=== PATIENT | female | born 1945 | race African-American/Black ===

== ENCOUNTER 2017-01-27 16:43 | Inpatient (IN) | payer MEDICARE ==
[2017-01-27] VITALS (7 sets, daily range): BP systolic 120–145; BP diastolic 70–94
[~2017-01-27] VITALS: Ht 162.6 cm; Wt 49.0 kg
--- NOTE | 2017-01-27 17:32 | Emergency Room Report ---
History of Present Illness General Chief Complaint: Syncope Source: Patient Present Illness HPI Patient 71-year-old female who presented after a syncopal episode. Patient had reportedly been at a festival and subsequently became less responsive. She denied any trauma. Patient denies any current locations of pain. The patient was noted to be somewhat confused. Allergies: Coded Allergies: No Known Allergies (Unverified , 01/27/17) Patient History Past Medical History: see triage record Reviewed Nursing Documentation: PMH: Agreed, PSxH: Agreed Nursing Documentation-PMH Past Medical History: No Stated History Review of Systems All Other Systems: negative except mentioned in HPI Physical Exam Vital Signs Date Time Temp Pulse Resp B/P (MAP) Pulse Ox O2 Delivery O2 Flow Rate FiO2 01/27/17 16:35 99.0 100 20 130/70 99 Room Air Sp02 EP Interpretation: reviewed, normal General Appearance: normal inspection, well appearing, no apparent distress, alert, Chronically Ill Head: atraumatic ENT: normal ENT inspection, hearing grossly normal, normal voice Neck: normal inspection, full range of motion, supple, no bony tend Respiratory: normal inspection, lungs clear, normal breath sounds, no respiratory distress, no retraction, no wheezing Cardiovascular #1: regular rate, rhythm, no edema Gastrointestinal: normal inspection, normal bowel sounds, non tender, soft, no guarding, no hernia Genitourinary: no CVA tenderness Musculoskeletal: normal inspection, back normal, normal range of motion Neurologic: normal inspection, alert, oriented x3, responsive, machine turner III-XII nml as tested, speech normal Psychiatric: normal inspection, judgement/insight normal, mood/affect normal Skin: normal inspection, normal color, no rash Medical Decision Making Diagnostic Impression: Primary Impression: Syncope Additional Impression: Dehydration ER Course Patient presented for syncope. Differential diagnosis included but not limited to syncope versus seizure. Potential causes for syncope included arrhythmia, dehydration, acute coronary syndrome, severe anemia, pulmonary embolus. Because of complexity of patient's case laboratory testing and imaging studies were ordered. The patient was given IV fluids as well as was placed on environmental monitoring specialist. Rhythm strip interpreted by me showed normal sinus rhythm with a rate of [address] or T wave changes. EKG interpreted by me showed normal sinus rhythm with a rate of [address] or T wave changes.The patient started on IV fluids with some improvement in her blood pressure. The patient was unable to provide a urine specimen at this time. Dr. Page was contacted for inpatient management due to need for inpatient monitoring and treatment. Labs Test 01/27/17 17:50 White Blood Count 11.2 K/UL (4.8-10.8) Red Blood Count 4.28 M/UL (4.20-5.40) Hemoglobin 13.4 G/DL (12.0-16.0) Hematocrit 42.4 % (37.0-47.0) Mean Corpuscular Volume 99 FL (80-99) Mean Corpuscular Hemoglobin 31.3 PG (27.0-31.0) Mean Corpuscular Hemoglobin Concent 31.5 G/DL (32.0-36.0) Red Cell Distribution Width 12.9 % (11.6-14.8) Platelet Count 267 K/UL (150-450) Mean Platelet Volume 7.0 FL (6.5-10.1) Neutrophils (%) (Auto) 83.4 % (45.0-75.0) Lymphocytes (%) (Auto) 10.2 % (20.0-45.0) Monocytes (%) (Auto) 5.2 % (1.0-10.0) Eosinophils (%) (Auto) 0.1 % (0.0-3.0) Basophils (%) (Auto) 1.1 % (0.0-2.0) Prothrombin Time 10.1 SEC (9.30-11.50) Prothromb Time International Ratio 1.0 (0.9-1.1) Activated Partial Thromboplast Time 21 SEC (23-33) Sodium Level 142 MMOL/L (136-145) Potassium Level 3.9 MMOL/L (3.5-5.1) Chloride Level 106 MMOL/L (98-107) Carbon Dioxide Level 28 MMOL/L (21-32) Anion Gap 9 mmol/L (5-15) Blood Urea Nitrogen 16 mg/dL (7-18) Creatinine 0.9 MG/DL (0.55-1.30) Estimat Glomerular Filtration Rate > 60 mL/min (>60) Glucose Level 108 MG/DL (74-106) Calcium Level 9.7 MG/DL (8.5-10.1) Total Bilirubin 0.2 MG/DL (0.2-1.0) Aspartate Amino Transf (AST/SGOT) 28 U/L (15-37) Alanine Aminotransferase (ALT/SGPT) 18 U/L (12-78) Alkaline Phosphatase 91 U/L (46-116) Total Protein 7.5 G/DL (6.4-8.2) Albumin 3.9 G/DL (3.4-5.0) Globulin 3.6 g/dL Albumin/Globulin Ratio 1.1 (1.0-2.7) Serum Alcohol < 3 mg/dL EKG Diagnostic Results Rate: normal Rhythm: NSR ST Segments: no acute changes - 88 Last Vital Signs Date Time Temp Pulse Resp B/P (MAP) Pulse Ox O2 Delivery O2 Flow Rate FiO2 01/27/17 16:35 99.0 100 20 130/70 99 Room Air Status: improved Disposition: ADMITTED INPATIENT Condition: Alireza Weems Jan 27, 2017 17:32
[2017-01-27 18:09] LABS: BASOPHILS % (AUTO) 1.1 % (0.0-2.0); EOSINOPHILS % (AUTO) 0.1 % (0.0-3.0); LYMPHOCYTES % (AUTO) 10.2 % (20.0-45.0); MEAN CORPUSCULAR HEMOGLOBIN 31.3 PG (27.0-31.0); MEAN CORPUSCULAR HGB CONC 31.5 G/DL (32.0-36.0); MEAN CORPUSCULAR VOLUME 99 FL (80-99); MONOCYTES % (AUTO) 5.2 % (1.0-10.0); NEUTROPHILS % (AUTO) 83.4 % (45.0-75.0); PLATELET COUNT 267 K/UL (150-450); RED BLOOD COUNT 4.28 M/UL (4.20-5.40); RED CELL DISTRIBUTION WIDTH 12.9 % (11.6-14.8); WHITE BLOOD COUNT 11.2 K/UL (4.8-10.8)
[2017-01-27 18:15] LABS: PROTHROMBIN TIME 10.1 SEC (9.30-11.50)
[2017-01-27 18:18] LABS: ANION GAP 9 mmol/L (5-15); CARBON DIOXIDE 28 MMOL/L (21-32); CHLORIDE 106 MMOL/L (98-107); POTASSIUM 3.9 MMOL/L (3.5-5.1); SODIUM 142 MMOL/L (136-145)
[2017-01-27 18:33] LABS: ALANINE AMINOTRANSFERASE 18 U/L (12-78); ALBUMIN/GLOBULIN RATIO 1.1 (1.0-2.7); ASPARTATE AMINO TRANSFERASE 28 U/L (15-37); CALCIUM 9.7 MG/DL (8.5-10.1); CREATININE 0.9 MG/DL (0.55-1.30); GLOMERULAR FILTRATION RATE > 60 mL/min (>60); TOTAL PROTEIN 7.5 G/DL (6.4-8.2)
[2017-01-27 18:36] LABS: ALCOHOL < 3 mg/dL
[2017-01-27] MEDS ORDERED: NKM (22:04)
[2017-01-28] VITALS: BP 134/89
[2017-01-28 04:00] VITALS: BP 136/84
[2017-01-28 06:15] LABS: BASOPHILS % (AUTO) 1.3 % (0.0-2.0); LYMPHOCYTES % (AUTO) 31.2 % (20.0-45.0); MEAN CORPUSCULAR HEMOGLOBIN 32.4 PG (27.0-31.0); MEAN CORPUSCULAR HGB CONC 32.9 G/DL (32.0-36.0); MEAN CORPUSCULAR VOLUME 98 FL (80-99); MEAN PLATELET VOLUME 7.6 FL (6.5-10.1); MONOCYTES % (AUTO) 7.5 % (1.0-10.0); NEUTROPHILS % (AUTO) 59.1 % (45.0-75.0); PLATELET COUNT 308 K/UL (150-450); RED BLOOD COUNT 4.16 M/UL (4.20-5.40); RED CELL DISTRIBUTION WIDTH 12.9 % (11.6-14.8); WHITE BLOOD COUNT 8.1 K/UL (4.8-10.8)
[2017-01-28 06:26] LABS: ANION GAP 4 mmol/L (5-15); CARBON DIOXIDE 31 MMOL/L (21-32); CHLORIDE 107 MMOL/L (98-107); SODIUM 142 MMOL/L (136-145)
[2017-01-28 07:04] LABS: HEMOGLOBIN A1C 6.8 % (4.3-6.0)
[2017-01-28 07:25] LABS: KETONES,URINE NEGATIVE (NEGATIVE); LEUKOCYTE ESTERASE ,URINE 1+ (NEGATIVE); NITRITE,URINE NEGATIVE (NEGATIVE); PH,URINE 6 (4.5-8.0); PROTEIN,URINE NEGATIVE (NEGATIVE); UROBILINOGEN,URINE NORMAL MG/DL (0.0-1.0)
[2017-01-28 08:00] VITALS: BP 158/95
[2017-01-28 08:30] LABS: ALANINE AMINOTRANSFERASE 21 U/L (12-78); ALBUMIN/GLOBULIN RATIO 1.1 (1.0-2.7); ASPARTATE AMINO TRANSFERASE 28 U/L (15-37); CALCIUM 9.7 MG/DL (8.5-10.1); CHOLESTEROL 234 MG/DL (< 200); CHOLESTEROL/HDL RATIO 2.5 (3.3-4.4); CREATININE 0.9 MG/DL (0.55-1.30); GLOMERULAR FILTRATION RATE > 60 mL/min (>60); TOTAL PROTEIN 7.6 G/DL (6.4-8.2)
--- NOTE | 2017-01-28 08:46 | General Progress Note ---
Assessment/Plan Status: stable Assessment/Plan 1- Acute Encephalopathy 2- THC 3- Abn BS 4- Hyperlipidemia 5- GI-DVT Plan: cardiology notified echo and carotid Dupplex ordered Subjective ROS Limited/Unobtainable: No Constitutional: Reports: no symptoms Cardiovascular: Reports: no symptoms Respiratory: Reports: no symptoms Allergies: Coded Allergies: No Known Allergies (Unverified , 01/27/17) Objective Last 24 Hour Vital Signs Date Time Temp Pulse Resp B/P (MAP) Pulse Ox O2 Delivery O2 Flow Rate FiO2 01/28/17 08:00 96.6 85 18 158/95 96 Room Air 01/28/17 04:00 97.6 68 18 136/84 99 Room Air 01/28/17 04:00 73 01/28/17 00:00 97.0 70 21 134/89 98 Room Air 01/28/17 00:00 87 01/27/17 22:05 99.0 77 21 126/70 100 Room Air 01/27/17 22:00 99.0 77 21 126/70 100 Room Air 01/27/17 19:25 95 16 145/84 99 Room Air 01/27/17 18:00 89 14 120/94 99 Room Air 01/27/17 17:00 145/84 01/27/17 16:55 139/79 01/27/17 16:50 142/79 01/27/17 16:45 99.0 20 130/70 99 Room Air 01/27/17 16:35 99.0 100 20 130/70 99 Room Air Laboratory Tests 01/27/17 17:50: White Blood Count 11.2H, Red Blood Count 4.28, Hemoglobin 13.4, Hematocrit 42.4 , Mean Corpuscular Volume 99, Mean Corpuscular Hemoglobin 31.3H, Mean Corpuscular Hemoglobin Concent 31.5L, Red Cell Distribution Width 12.9, Platelet Count 267, Mean Platelet Volume 7.0, Neutrophils (%) (Auto) 83.4H, Lymphocytes (%) (Auto) 10.2L, Monocytes (%) (Auto) 5.2, Eosinophils (%) (Auto) 0.1, Basophils (%) (Auto) 1.1, Prothrombin Time 10.1, Prothromb Time International Ratio 1.0, Activated Partial Thromboplast Time 21L, Sodium Level 142, Potassium Level 3.9, Chloride Level 106, Carbon Dioxide Level 28, Anion Gap 9, Blood Urea Nitrogen 16, Creatinine 0.9, Estimat Glomerular Filtration Rate > 60, Glucose Level 108H, Calcium Level 9.7, Total Bilirubin 0.2, Aspartate Amino Transf (AST/SGOT) 28, Alanine Aminotransferase (ALT/SGPT) 18, Alkaline Phosphatase 91, Troponin I 0.003, Total Protein 7.5, Albumin 3.9, Globulin 3.6, Albumin/Globulin Ratio 1.1, Serum Alcohol < 3 01/28/17 06:00: White Blood Count 8.1, Red Blood Count 4.16L, Hemoglobin 13.4, Hematocrit 40.9, Mean Corpuscular Volume 98, Mean Corpuscular Hemoglobin 32.4H, Mean Corpuscular Hemoglobin Concent 32.9, Red Cell Distribution Width 12.9, Platelet Count 308, Mean Platelet Volume 7.6, Neutrophils (%) (Auto) 59.1, Lymphocytes (%) (Auto) 31.2, Monocytes (%) (Auto) 7.5, Eosinophils (%) (Auto) 1.0, Basophils (%) (Auto ) 1.3, Sodium Level 142, Potassium Level 4.0, Chloride Level 107, Carbon Dioxide Level 31, Anion Gap 4L, Blood Urea Nitrogen 21H, Creatinine 0.9, Estimat Glomerular Filtration Rate > 60, Glucose Level 97, Calcium Level 9.7, Total Bilirubin 0.3, Aspartate Amino Transf (AST/SGOT) 28, Alanine Aminotransferase (ALT/SGPT) 21, Alkaline Phosphatase 99, Troponin I 0.000, Total Protein 7.6, Albumin 3.9, Globulin 3.7, Albumin/Globulin Ratio 1.1, Urine Color [Pending], Urine Appearance [Pending], Urine pH [Pending], Urine Specific [place] [Pending], Urine Protein [Pending], Urine Glucose (UA) [Pending], Urine Ketones [Pending], Urine Occult Blood [Pending], Urine Nitrite [Pending], Urine Bilirubin [Pending], Urine Urobilinogen [Pending], Urine Leukocyte Esterase [ Pending], Urine RBC [Pending], Urine WBC [Pending], Urine Squamous Epithelial Cells [Pending], Urine Bacteria [Pending], Hemoglobin A1c 6.8H, Triglycerides Level 59, Cholesterol Level 234H, LDL Cholesterol 137H, HDL Cholesterol 93H, Cholesterol/HDL Ratio 2.5L, Urine Opiates Screen Negative, Urine Barbiturates Screen Negative, Phencyclidine (PCP) Screen Negative, Urine Amphetamines Screen Negative, Urine Benzodiazepines Screen Negative, Urine Cocaine Screen Negative, Urine Marijuana (THC) Screen PositiveH Height (Feet): 5 Height (Inches): 4.00 Weight (Pounds): 108 General Appearance: WD/WN EENT: PERRL/EOMI Neck: supple Cardiovascular: normal rate Respiratory/Chest: lungs clear Abdomen: soft Extremities: non-tender Neurologic: lobby porter II-XII grossly normal Amado Page MD Jan 28, 2017 08:46
[2017-01-28] MEDS: Aspirin EC 81mg tab ORAL SCH (08:52)
[2017-01-28] MEDS: Enoxaparin 40mg Inj SUBQ SCH (08:54)
[2017-01-28 08:56] LABS: APPEARANCE,URINE CLEAR
[2017-01-28 08:57] LABS: BACTERIA,URINE OCCASIONAL /HPF; RBC,URINE 0-2 /HPF (0 - 2); SQUAMOUS EPITHELIAL CELL,UR OCCASIONAL /LPF (NONE/OCC)
--- NOTE | 2017-01-28 11:55 | Diagnostic Imaging Report ---
Indication: Dyspnea Comparison: None A single view chest radiograph was obtained. Findings: No definite infiltrate or pulmonary vascular congestion identified. The heart is enlarged. The aorta is mildly enlarged consistent with atherosclerotic vascular disease. The bones are osteopenic. Impression: No acute disease
[2017-01-28 12:00] VITALS: BP 161/80
--- NOTE | 2017-01-28 13:55 | Cardiology Progress Note ---
Assessment/Plan Assessment/Plan The patient is seen and examined, full consult note will be dictated shortly. Objective Last 24 Hour Vital Signs Date Time Temp Pulse Resp B/P (MAP) Pulse Ox O2 Delivery O2 Flow Rate FiO2 01/28/17 12:00 96.2 70 20 161/80 97 Room Air 01/28/17 08:00 96.6 85 18 158/95 96 Room Air 01/28/17 04:00 97.6 68 18 136/84 99 Room Air 01/28/17 04:00 73 01/28/17 00:00 97.0 70 21 134/89 98 Room Air 01/28/17 00:00 87 01/27/17 22:05 99.0 77 21 126/70 100 Room Air 01/27/17 22:00 99.0 77 21 126/70 100 Room Air 01/27/17 19:25 95 16 145/84 99 Room Air 01/27/17 18:00 89 14 120/94 99 Room Air 01/27/17 17:00 145/84 01/27/17 16:55 139/79 01/27/17 16:50 142/79 01/27/17 16:45 99.0 20 130/70 99 Room Air 01/27/17 16:35 99.0 100 20 130/70 99 Room Air Intake and Output 01/28/17 01/29/17 19:00 07:00 Intake Total 300 ml Balance 300 ml Intake Oral 300 ml # Voids 1 Laboratory Tests Test 01/27/17 17:50 01/28/17 06:00 White Blood Count 11.2 K/UL (4.8-10.8) H 8.1 K/UL (4.8-10.8) Red Blood Count 4.28 M/UL (4.20-5.40) 4.16 M/UL (4.20-5.40) L Hemoglobin 13.4 G/DL (12.0-16.0) 13.4 G/DL (12.0-16.0) Hematocrit 42.4 % (37.0-47.0) 40.9 % (37.0-47.0) Mean Corpuscular Volume 99 FL (80-99) 98 FL (80-99) Mean Corpuscular Hemoglobin 31.3 PG (27.0-31.0) H 32.4 PG (27.0-31.0) H Mean Corpuscular Hemoglobin Concent 31.5 G/DL (32.0-36.0) L 32.9 G/DL (32.0-36.0) Red Cell Distribution Width 12.9 % (11.6-14.8) 12.9 % (11.6-14.8) Platelet Count 267 K/UL (150-450) 308 K/UL (150-450) Mean Platelet Volume 7.0 FL (6.5-10.1) 7.6 FL (6.5-10.1) Neutrophils (%) (Auto) 83.4 % (45.0-75.0) H 59.1 % (45.0-75.0) Lymphocytes (%) (Auto) 10.2 % (20.0-45.0) L 31.2 % (20.0-45.0) Monocytes (%) (Auto) 5.2 % (1.0-10.0) 7.5 % (1.0-10.0) Eosinophils (%) (Auto) 0.1 % (0.0-3.0) 1.0 % (0.0-3.0) Basophils (%) (Auto) 1.1 % (0.0-2.0) 1.3 % (0.0-2.0) Prothrombin Time 10.1 SEC (9.30-11.50) Prothromb Time International Ratio 1.0 (0.9-1.1) Activated Partial Thromboplast Time 21 SEC (23-33) L Sodium Level 142 MMOL/L (136-145) 142 MMOL/L (136-145) Potassium Level 3.9 MMOL/L (3.5-5.1) 4.0 MMOL/L (3.5-5.1) Chloride Level 106 MMOL/L (98-107) 107 MMOL/L (98-107) Carbon Dioxide Level 28 MMOL/L (21-32) 31 MMOL/L (21-32) Anion Gap 9 mmol/L (5-15) 4 mmol/L (5-15) L Blood Urea Nitrogen 16 mg/dL (7-18) 21 mg/dL (7-18) H Creatinine 0.9 MG/DL (0.55-1.30) 0.9 MG/DL (0.55-1.30) Estimat Glomerular Filtration Rate > 60 mL/min (>60) > 60 mL/min (>60) Glucose Level 108 MG/DL (74-106) H 97 MG/DL (74-106) Calcium Level 9.7 MG/DL (8.5-10.1) 9.7 MG/DL (8.5-10.1) Total Bilirubin 0.2 MG/DL (0.2-1.0) 0.3 MG/DL (0.2-1.0) Aspartate Amino Transf (AST/SGOT) 28 U/L (15-37) 28 U/L (15-37) Alanine Aminotransferase (ALT/SGPT) 18 U/L (12-78) 21 U/L (12-78) Alkaline Phosphatase 91 U/L (46-116) 99 U/L (46-116) Troponin I 0.003 ng/mL (0.000-0.056) 0.000 ng/mL (0.000-0.056) Total Protein 7.5 G/DL (6.4-8.2) 7.6 G/DL (6.4-8.2) Albumin 3.9 G/DL (3.4-5.0) 3.9 G/DL (3.4-5.0) Globulin 3.6 g/dL 3.7 g/dL Albumin/Globulin Ratio 1.1 (1.0-2.7) 1.1 (1.0-2.7) Serum Alcohol < 3 mg/dL Urine Color Yellow Urine Appearance Clear Urine pH 6 (4.5-8.0) Urine Specific [place] 1.020 (1.005-1.035) Urine Protein Negative (NEGATIVE) Urine Glucose (UA) Negative (NEGATIVE) Urine Ketones Negative (NEGATIVE) Urine Occult Blood Negative (NEGATIVE) Urine Nitrite Negative (NEGATIVE) Urine Bilirubin Negative (NEGATIVE) Urine Urobilinogen Normal MG/DL (0.0-1.0) Urine Leukocyte Esterase 1+ (NEGATIVE) H Urine RBC 0-2 /HPF (0 - 2) Urine WBC 5-10 /HPF (0 - 2) H Urine Squamous Epithelial Cells Occasional /LPF Urine Bacteria Occasional /HPF (NONE) Hemoglobin A1c 6.8 % (4.3-6.0) H Triglycerides Level 59 MG/DL (0-200) Cholesterol Level 234 MG/DL (< 200) H LDL Cholesterol 137 mg/dL (<100) H HDL Cholesterol 93 MG/DL (40-60) H Cholesterol/HDL Ratio 2.5 (3.3-4.4) L Urine Opiates Screen Negative (NEGATIVE) Urine Barbiturates Screen Negative (NEGATIVE) Phencyclidine (PCP) Screen Negative (NEGATIVE) Urine Amphetamines Screen Negative (NEGATIVE) Urine Benzodiazepines Screen Negative (NEGATIVE) Urine Cocaine Screen Negative (NEGATIVE) Urine Marijuana (THC) Screen Positive (NEGATIVE) H LEYDI ALEX Jan 28, 2017 13:55
--- NOTE | 2017-01-28 14:45 | Neurology Progress Note ---
Interim History Interim History ROS Limited/Unobtainable: No Objective Physical Exam Last Vital Signs Date Time Temp Pulse Resp B/P (MAP) Pulse Ox O2 Delivery O2 Flow Rate FiO2 01/28/17 12:00 96.2 70 20 161/80 97 Room Air Laboratory Tests Test 01/27/17 17:50 01/28/17 06:00 White Blood Count 11.2 K/UL (4.8-10.8) H 8.1 K/UL (4.8-10.8) Red Blood Count 4.28 M/UL (4.20-5.40) 4.16 M/UL (4.20-5.40) L Hemoglobin 13.4 G/DL (12.0-16.0) 13.4 G/DL (12.0-16.0) Hematocrit 42.4 % (37.0-47.0) 40.9 % (37.0-47.0) Mean Corpuscular Volume 99 FL (80-99) 98 FL (80-99) Mean Corpuscular Hemoglobin 31.3 PG (27.0-31.0) H 32.4 PG (27.0-31.0) H Mean Corpuscular Hemoglobin Concent 31.5 G/DL (32.0-36.0) L 32.9 G/DL (32.0-36.0) Red Cell Distribution Width 12.9 % (11.6-14.8) 12.9 % (11.6-14.8) Platelet Count 267 K/UL (150-450) 308 K/UL (150-450) Mean Platelet Volume 7.0 FL (6.5-10.1) 7.6 FL (6.5-10.1) Neutrophils (%) (Auto) 83.4 % (45.0-75.0) H 59.1 % (45.0-75.0) Lymphocytes (%) (Auto) 10.2 % (20.0-45.0) L 31.2 % (20.0-45.0) Monocytes (%) (Auto) 5.2 % (1.0-10.0) 7.5 % (1.0-10.0) Eosinophils (%) (Auto) 0.1 % (0.0-3.0) 1.0 % (0.0-3.0) Basophils (%) (Auto) 1.1 % (0.0-2.0) 1.3 % (0.0-2.0) Prothrombin Time 10.1 SEC (9.30-11.50) Prothromb Time International Ratio 1.0 (0.9-1.1) Activated Partial Thromboplast Time 21 SEC (23-33) L Sodium Level 142 MMOL/L (136-145) 142 MMOL/L (136-145) Potassium Level 3.9 MMOL/L (3.5-5.1) 4.0 MMOL/L (3.5-5.1) Chloride Level 106 MMOL/L (98-107) 107 MMOL/L (98-107) Carbon Dioxide Level 28 MMOL/L (21-32) 31 MMOL/L (21-32) Anion Gap 9 mmol/L (5-15) 4 mmol/L (5-15) L Blood Urea Nitrogen 16 mg/dL (7-18) 21 mg/dL (7-18) H Creatinine 0.9 MG/DL (0.55-1.30) 0.9 MG/DL (0.55-1.30) Estimat Glomerular Filtration Rate > 60 mL/min (>60) > 60 mL/min (>60) Glucose Level 108 MG/DL (74-106) H 97 MG/DL (74-106) Calcium Level 9.7 MG/DL (8.5-10.1) 9.7 MG/DL (8.5-10.1) Total Bilirubin 0.2 MG/DL (0.2-1.0) 0.3 MG/DL (0.2-1.0) Aspartate Amino Transf (AST/SGOT) 28 U/L (15-37) 28 U/L (15-37) Alanine Aminotransferase (ALT/SGPT) 18 U/L (12-78) 21 U/L (12-78) Alkaline Phosphatase 91 U/L (46-116) 99 U/L (46-116) Troponin I 0.003 ng/mL (0.000-0.056) 0.000 ng/mL (0.000-0.056) Total Protein 7.5 G/DL (6.4-8.2) 7.6 G/DL (6.4-8.2) Albumin 3.9 G/DL (3.4-5.0) 3.9 G/DL (3.4-5.0) Globulin 3.6 g/dL 3.7 g/dL Albumin/Globulin Ratio 1.1 (1.0-2.7) 1.1 (1.0-2.7) Serum Alcohol < 3 mg/dL Urine Color Yellow Urine Appearance Clear Urine pH 6 (4.5-8.0) Urine Specific [place] 1.020 (1.005-1.035) Urine Protein Negative (NEGATIVE) Urine Glucose (UA) Negative (NEGATIVE) Urine Ketones Negative (NEGATIVE) Urine Occult Blood Negative (NEGATIVE) Urine Nitrite Negative (NEGATIVE) Urine Bilirubin Negative (NEGATIVE) Urine Urobilinogen Normal MG/DL (0.0-1.0) Urine Leukocyte Esterase 1+ (NEGATIVE) H Urine RBC 0-2 /HPF (0 - 2) Urine WBC 5-10 /HPF (0 - 2) H Urine Squamous Epithelial Cells Occasional /LPF Urine Bacteria Occasional /HPF (NONE) Hemoglobin A1c 6.8 % (4.3-6.0) H Triglycerides Level 59 MG/DL (0-200) Cholesterol Level 234 MG/DL (< 200) H LDL Cholesterol 137 mg/dL (<100) H HDL Cholesterol 93 MG/DL (40-60) H Cholesterol/HDL Ratio 2.5 (3.3-4.4) L Urine Opiates Screen Negative (NEGATIVE) Urine Barbiturates Screen Negative (NEGATIVE) Phencyclidine (PCP) Screen Negative (NEGATIVE) Urine Amphetamines Screen Negative (NEGATIVE) Urine Benzodiazepines Screen Negative (NEGATIVE) Urine Cocaine Screen Negative (NEGATIVE) Urine Marijuana (THC) Screen Positive (NEGATIVE) H Impression/Recommendations Problems: (1) Syncope Status: stable Recommendations #[id number] MARY KATE MCCALLUM Jan 28, 2017 14:45
[2017-01-28 16:00] VITALS: BP 157/82
--- NOTE | 2017-01-28 17:04 | Cardiology Report ---
APPROVED REPORT EXAM: Two-dimensional and M-mode echocardiogram with Doppler and color Doppler. INDICATION Syncope M-Mode DIMENSIONS IVSd0.8 (0.7-1.1cm)Left Atrium (MM)3.1 (1.6-4.0cm) LVDd4.3 (3.5-5.6cm)Aortic Root2.7 (2.0-3.7cm) PWd0.7 (0.7-1.1cm)Aortic Cusp Exc.1.8 (1.5-2.0cm) LVDs1.5 (2.5-4.0cm) PWs1.5 cm Normal left ventricular chamber size, systolic function and wall motion. Left ventricular ejection fraction estimated to be 55 %. No evidence of left ventricular hypertrophy. Anterior Echo-free space, may be due to pericardial fat or effusion. All other cardiac chamber sizes are within normal limits. Normal appearing aortic valce structure. Mildly thickened mitral valve leaflets with normal excursion. Mild mitral annulus and aortic root calcification. Pulmonic valve not well visualized. Normal tricuspid valve structure. IVC dilated at 1.7 cm with physiologic collapse, estimated RAP is 10mmHg. A color flow and spectral Doppler study was performed and revealed: No aortic regurgitation. Trace mitral regurgitation. reduced left ventricular relaxation. Mild tricuspid regurgitation. Tricuspid systolic velocities suggests peak right ventricular systolic pressure of 33 mmHg. No pulmonic regurgitation present.
--- NOTE | 2017-01-28 17:17 | Cardiology Report ---
APPROVED REPORT EKG Measurement Heart [id number] Normal sinus rhythm Possible Left atrial enlargement Borderline ECG
[2017-01-28 20:00] VITALS: BP 155/83
[2017-01-29] VITALS (7 sets, daily range): BP systolic 127–173; BP diastolic 91–104
--- NOTE | 2017-01-29 05:45 | Consultation ---
DATE OF CONSULTATION: 01/28/2017 CARDIOLOGY CONSULTATION CONSULTING PHYSICIAN: Reji Baker M.D. REFERRING PHYSICIAN: Amado Page M.D. REASON FOR CONSULTATION: Management of syncope. HISTORY OF PRESENT ILLNESS: The patient is a very pleasant 71-year-old female, who presented to the hospital after an episode of presyncope. The patient states that she was in a [place] and she had extreme lightheadedness and dizziness and almost passed out. She denies complete loss of consciousness. At the time of her arrival to the emergency department, she was noted to be somewhat confused. Her blood pressure was 130/70 and pulse of 100. She was evaluated in the emergency department and was diagnosed with hypovolemia and admitted to telemetry. PAST MEDICAL HISTORY: None. PAST SURGICAL HISTORY: None. ALLERGIES: No known drug allergies. LIST OF MEDICATIONS: None. FAMILY HISTORY: No premature coronary artery disease in first-degree relatives. REVIEW OF SYSTEMS: HEENT: Denies any headache, diplopia, or blurred vision. CONSTITUTIONAL: Denies any fever, chills, night sweats, or weight loss. CARDIOVASCULAR: Denies any chest pain, shortness of breath, PND, orthopnea, leg swelling, or palpitation. PULMONARY: Denies any cough, hemoptysis, or wheezing. GASTROINTESTINAL: Denies any nausea, vomiting, diarrhea, constipation, abdominal pain, or GI bleed. GENITOURINARY: Denies any hematuria, dysuria, or incontinence. NEUROLOGY: Denies any motor dysfunction, sensory deficit, or altered speech. A presyncopal event was mentioned above. PHYSICAL EXAMINATION: VITAL SIGNS: Blood pressure is 130/70, pulse of 100, respirations of 20, O2 saturation 99% on room air, and temperature 99 degrees Fahrenheit. GENERAL: The patient is a very pleasant 71-year-old female, in no apparent respiratory distress. Alert and oriented x4. HEENT: Atraumatic and normocephalic. Anicteric. Pupils are equal, round, and reactive to light and accommodation. Extraocular muscles are intact. NECK: JVP less than 5 cm. No carotid bruit. Carotid upstrokes 2+ bilaterally. CARDIOVASCULAR: Normal S1 and S2. Regular rate and rhythm. No murmurs, gallops, or rubs. PMI is at fourth intercostal space in the midclavicular line. LUNGS: Clear to auscultation bilaterally. ABDOMEN: Soft, nontender, and nondistended. No hepatosplenomegaly. Positive bowel sounds. EXTREMITIES: No evidence of edema, clubbing, or cyanosis. LABORATORY AND DIAGNOSTIC DATA: Chest x-ray shows no acute cardiopulmonary disease. A 2D echocardiography revealed normal LV systolic function with LVEF of 55%. There was trace mitral regurgitation, inferior left ventricular relaxation, grade 1 LV diastolic dysfunction with normal intracardiac filling pressure. There was right ventricular systolic pressure measured at 33 mmHg. Laboratory findings, WBC was 11.2, hemoglobin 13.4, hematocrit 42.4, and platelet count was 267,000. Sodium was 142, potassium 3.9, chloride 106, bicarbonate 28, BUN 16, creatinine 0.9, glucose is 108, and calcium is 9.7. Hemoglobin A1c was 6.8. Troponin I x3 was negative. Triglyceride was 59. Total cholesterol was 234, LDL was 137, and HDL was 93. A 12-lead electrocardiogram shows sinus rhythm at a rate of 88 with possible left atrial enlargement. No acute ST and T-wave abnormalities. ASSESSMENT AND PLAN: The patient is a very unfortunate 71-year-old female, seen in Cardiology consultation at the request of Dr. Page. 1. Presyncopal event. The patient denies loss of consciousness. We will continue workup of syncope. A carotid artery ultrasound will be done. A 2D echocardiography has shown normal left ventricular systolic function. Orthostatic vitals will be also done. It seems to me that the patient has suffered from hypovolemia. A few indicated would be the concentrated urine, presence of tachycardia, and relative contraction alkalosis. 2. Hyperlipidemia. 3. I would advice with aggressive hydration. The patient would not be a candidate for electrophysiology. I would like to thank, Dr. Page, for the courtesy of this consultation. Reji Baker M.D. DR: YVONNE JOB#: [id number] CC:
[2017-01-29 08:19] LABS: BASOPHILS % (AUTO) 1.2 % (0.0-2.0); MEAN CORPUSCULAR HEMOGLOBIN 31.9 PG (27.0-31.0); MEAN CORPUSCULAR HGB CONC 32.4 G/DL (32.0-36.0); MEAN CORPUSCULAR VOLUME 98 FL (80-99); MEAN PLATELET VOLUME 7.8 FL (6.5-10.1); MONOCYTES % (AUTO) 8.8 % (1.0-10.0); PLATELET COUNT 272 K/UL (150-450); RED BLOOD COUNT 3.85 M/UL (4.20-5.40); WHITE BLOOD COUNT 4.9 K/UL (4.8-10.8)
[2017-01-29] MEDS: Aspirin EC 81mg tab ORAL SCH (08:39)
[2017-01-29 08:40] LABS: ALANINE AMINOTRANSFERASE 22 U/L (12-78); ANION GAP 5 mmol/L (5-15); ASPARTATE AMINO TRANSFERASE 24 U/L (15-37); CALCIUM 9.1 MG/DL (8.5-10.1); CARBON DIOXIDE 29 MMOL/L (21-32); CHLORIDE 108 MMOL/L (98-107); CREATININE 0.7 MG/DL (0.55-1.30); GLOMERULAR FILTRATION RATE > 60 mL/min (>60); POTASSIUM 3.8 MMOL/L (3.5-5.1); SODIUM 142 MMOL/L (136-145); TOTAL PROTEIN 6.8 G/DL (6.4-8.2)
[2017-01-29] MEDS: Enoxaparin 40mg Inj SUBQ SCH (09:00)
--- NOTE | 2017-01-29 10:31 | History and Physical Report ---
DATE OF ADMISSION: 01/27/2017 INTERNAL MEDICINE HISTORY AND PHYSICAL SOURCE OF INFORMATION: The patient and EMR. HISTORY OF PRESENT ILLNESS: The patient is a 71-year-old female with unremarkable past medical history. The patient reported that not that likely has lost her consciousness while sitting at a public location. The patient has been brought by the 911 call. The patient denies any loss of the control over the urination or the bladder/bowel. The patient denies any severe headache. The patient denies any palpitation or any chest pain. PAST MEDICAL HISTORY: Denies, unremarkable. PAST SURGICAL HISTORY: Denies. CURRENT HOSPITAL MEDICATIONS: Lovenox, aspirin, and ranitidine. ALLERGIES: NKDA. 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 The patient denies history of illicit drug abuse, smoking, or alcohol abuse. REVIEW OF SYSTEMS: All 12 elements reviewed with the patient. Pertinent positive and negative are reported as above. PHYSICAL EXAMINATION: VITAL SIGNS: Blood pressure 130/80, temperature 98.2 degrees, pulse oximetry 99% on room air, and respiratory rate 18. HEAD AND NECK: Atraumatic and normocephalic. CHEST: Clear to auscultation. HEART: S1 and S2. Regular rate and rhythm. ABDOMEN: Soft. No organomegaly. MUSCULOSKELETAL: No gross focal motor deficit. NEUROLOGIC: The patient is awake, alert, and oriented x3. Mood and affect are appropriate and normal. LABORATORY AND DIAGNOSTIC DATA: Labs dated 01/27/2017 shows WBC 11.2, hemoglobin 13.4, and platelets 267,000. Sodium 142, potassium 3.9 , creatinine is 0.9, and glucose 108. Urine drug screen positive for marijuana. ASSESSMENT AND PLAN: 1. Acute encephalopathy. 2. Leukocytosis. 3. Abnormal blood sugar. 4. Gastrointestinal and deep venous thrombosis prophylaxis. PLAN OF CARE: I agree to monitor the patient in the telemetry unit. A 2D echocardiogram and carotid duplex will be obtained. Cardiology notified. Amado Page M.D. DR: Gisella JOB#: [id number] CC: MIKALA
--- NOTE | 2017-01-29 10:45 | Consultation ---
DATE OF CONSULTATION: 01/28/2017 CONSULTING PHYSICIAN: Juan Ramon Sy M.D. REFERRING PHYSICIAN: Amado Page M.D. HISTORY OF PRESENT ILLNESS: This is a 71-year-old female, seen in neurological consultation to evaluate an amnestic episode. The patient has no recollection of events, but remembered that yesterday she was doing fairly well and was at a festival on [place], around noontime. She decided to go back home and was sitting in a bench in the block when sometime later, she noted that ambulance came in, someone called paramedics stating that she has some problems. The patient indicated that she has no recollection of what actually happened. She denies loss of consciousness. According to paramedics, her vital signs were stable. Blood pressure recorded 139/76, heart rate of 89, blood sugar 116. She was found to be sitting on a bench, fully oriented, but bystanders were stating that she had a syncope while sitting on a bench. At the time of evaluation, she was ambulatory and in no distress. She was brought to the emergency room. Her vital signs remained stable. She was afebrile, temperature 99.0. There was no evidence of distress. Initial diagnostic studies included CBC study with WBC 11.2, low MCV and MCH. Coagulation panel unremarkable. Urinalysis, 5-10 WBCs. Electrolyte panel unremarkable, except elevated cholesterol 234, LDL 137, and cholesterol 234. Toxicology panel positive for marijuana. Chest x-ray on admission revealed no acute abnormality. There was a mildly enlarged aorta consistent with atherosclerotic vascular disease. Since admission to present, there was no paroxysmal event. PAST MEDICAL HISTORY: The patient denies any major medical problems. She is not on any treatment. There is no history of hypertension, diabetes, or seizure disorder. No previous syncopal episodes. SOCIAL HISTORY: The patient is , lives alone. She lost her recent apartment and now lives at what seems [facility] [place]. There is no alcohol, no drug abuse. Nonsmoker. FAMILY HISTORY: 05:19. REVIEW OF SYSTEMS: Currently, the patient feels "perfectly" well. She denies headache or dizziness. No chest pain. No palpitations. No respiratory problems. Denies abdominal pain or discomfort. No urinary or bowel incontinence. Mental status, she is alert and oriented x2. She has some difficulty recalling her current address and had completely no recollection of event while she was waiting for the bus. She is convinced that there is nothing actually happened. No chest pain, no palpitations. No respiratory problems. Denies depression or anxiety. PHYSICAL EXAMINATION: GENERAL: Well developed, somewhat slim lady, not in acute distress. VITAL SIGNS: Stable. MUSCULOSKELETAL: Unremarkable. There is no deformities. Peripheral pulses 1+ symmetric. MENTAL STATUS: She is alert and oriented x2. Speech is fluent. Language intact. There is no aphasia. No apraxia. Cognitive function with some forgetfulness of recent events. Poor historian. CRANIAL NERVE II: Pupils, both responding to light and accommodation. Extraocular movement intact. No nystagmus. CRANIAL NERVE V: Normal corneal responses. CRANIAL NERVE VII: No gross asymmetry. CRANIAL NERVE VIII: Normal hearing. CRANIAL NERVES IX THROUGH XII: Within normal limits. MOTOR EXAMINATION: Normal muscle tone. Strength 5/5 in all extremities. No involuntary movement. Deep reflexes 1+ symmetric with downgoing toes both sides. SENSORY EXAMINATION: Normal to pinprick and light touch. GAIT: Stable. IMPRESSION: 1. History of transient amnestic episode. Rule out syncope, doubt seizure activity. 2. Mild cognitive impairment. RECOMMENDATIONS: Recheck B12, folate, thyroid function, AHSAN, sedimentation rate. The patient has hyperlipidemia, may be covered with statins. She will complete her cardiac workup. Meanwhile, the patient to be observed for any paroxysmal events. Thank you for allowing me to see this interesting patient in neurological consultation. Juan Ramon Sy M.D. DR: ROLANDA JOB#: [id number] CC:
--- NOTE | 2017-01-29 11:03 | General Progress Note ---
Assessment/Plan Status: stable Assessment/Plan 1. Acute encephalopathy. 2. Leukocytosis. 3. Abnormal blood sugar. 4. Gastrointestinal and deep venous thrombosis prophylaxis. Plan: Notes from cardiology and Neurology reviewed stable for outpatient followup Subjective ROS Limited/Unobtainable: No Constitutional: Reports: no symptoms HEENT: Reports: no symptoms Cardiovascular: Reports: no symptoms Allergies: Coded Allergies: No Known Allergies (Unverified , 01/27/17) Objective Last 24 Hour Vital Signs Date Time Temp Pulse Resp B/P (MAP) Pulse Ox O2 Delivery O2 Flow Rate FiO2 01/29/17 08:00 97.6 87 20 173/98 97 Room Air 01/29/17 04:03 92 01/29/17 04:00 98.1 92 20 155/104 99 Room Air 01/29/17 00:11 85 01/29/17 00:00 97.9 87 20 155/97 100 Room Air 01/28/17 20:12 89 01/28/17 20:00 97.0 91 20 155/83 Room Air 01/28/17 16:00 97.6 73 17 157/82 96 Room Air 01/28/17 16:00 77 01/28/17 12:00 96.2 70 20 161/80 97 Room Air 01/28/17 12:00 81 Intake and Output 01/29/17 01/30/17 19:00 07:00 Intake Total 240 ml Balance 240 ml Intake Oral 240 ml # Voids 1 Laboratory Tests 01/28/17 14:23: Troponin I 0.004 01/29/17 07:00: White Blood Count 4.9, Red Blood Count 3.85L, Hemoglobin 12.3, Hematocrit 37.9, Mean Corpuscular Volume 98, Mean Corpuscular Hemoglobin 31.9H, Mean Corpuscular Hemoglobin Concent 32.4, Red Cell Distribution Width 13.0, Platelet Count 272, Mean Platelet Volume 7.8, Neutrophils (%) (Auto) 46.0, Lymphocytes (%) (Auto) 42.0, Monocytes (%) (Auto) 8.8, Eosinophils (%) (Auto) 2.0, Basophils (%) (Auto ) 1.2, Sodium Level 142, Potassium Level 3.8, Chloride Level 108H, Carbon Dioxide Level 29, Anion Gap 5, Blood Urea Nitrogen 14, Creatinine 0.7, Estimat Glomerular Filtration Rate > 60, Glucose Level 92, Calcium Level 9.1, Total Bilirubin 0.3, Aspartate Amino Transf (AST/SGOT) 24, Alanine Aminotransferase ( ALT/SGPT) 22, Alkaline Phosphatase 80, Total Protein 6.8, Albumin 3.4, Globulin 3.4, Albumin/Globulin Ratio 1.0 Height (Feet): 5 Height (Inches): 4.00 Weight (Pounds): 108 General Appearance: no apparent distress EENT: PERRL/EOMI Neck: supple Cardiovascular: normal rate Respiratory/Chest: lungs clear Abdomen: soft Extremities: non-tender 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
--- NOTE | 2017-01-29 14:12 | Cardiology Progress Note ---
Assessment/Plan Assessment/Plan 1. Accelerated HTN, start combination of amlodipine and metoprolol, normal LV systolic function. 2. Pre-syncopal event. 3. Hyperlipidemia, start atorvastatin 10mg po qhs. Subjective Subjective Sinus tachycardia at 102. Objective Last 24 Hour Vital Signs Date Time Temp Pulse Resp B/P (MAP) Pulse Ox O2 Delivery O2 Flow Rate FiO2 01/29/17 12:00 83 01/29/17 12:00 98.4 82 20 159/96 99 Room Air 01/29/17 11:44 82 80 97 01/29/17 08:00 91 01/29/17 08:00 97.6 87 20 173/98 97 Room Air 01/29/17 04:03 92 01/29/17 04:00 98.1 92 20 155/104 99 Room Air 01/29/17 00:11 85 01/29/17 00:00 97.9 87 20 155/97 100 Room Air 01/28/17 20:12 89 01/28/17 20:00 97.0 91 20 155/83 Room Air 01/28/17 16:00 97.6 73 17 157/82 96 Room Air 01/28/17 16:00 77 Intake and Output 01/29/17 01/30/17 19:00 07:00 Intake Total 480 ml Balance 480 ml Intake Oral 480 ml # Voids 2 2D Echo: LVERF 55%, RVSP 33 mmHg. Laboratory Tests Test 01/28/17 14:23 01/29/17 07:00 Troponin I 0.004 ng/mL (0.000-0.056) White Blood Count 4.9 K/UL (4.8-10.8) Red Blood Count 3.85 M/UL (4.20-5.40) L Hemoglobin 12.3 G/DL (12.0-16.0) Hematocrit 37.9 % (37.0-47.0) Mean Corpuscular Volume 98 FL (80-99) Mean Corpuscular Hemoglobin 31.9 PG (27.0-31.0) H Mean Corpuscular Hemoglobin Concent 32.4 G/DL (32.0-36.0) Red Cell Distribution Width 13.0 % (11.6-14.8) Platelet Count 272 K/UL (150-450) Mean Platelet Volume 7.8 FL (6.5-10.1) Neutrophils (%) (Auto) 46.0 % (45.0-75.0) Lymphocytes (%) (Auto) 42.0 % (20.0-45.0) Monocytes (%) (Auto) 8.8 % (1.0-10.0) Eosinophils (%) (Auto) 2.0 % (0.0-3.0) Basophils (%) (Auto) 1.2 % (0.0-2.0) Sodium Level 142 MMOL/L (136-145) Potassium Level 3.8 MMOL/L (3.5-5.1) Chloride Level 108 MMOL/L (98-107) H Carbon Dioxide Level 29 MMOL/L (21-32) Anion Gap 5 mmol/L (5-15) Blood Urea Nitrogen 14 mg/dL (7-18) Creatinine 0.7 MG/DL (0.55-1.30) Estimat Glomerular Filtration Rate > 60 mL/min (>60) Glucose Level 92 MG/DL (74-106) Calcium Level 9.1 MG/DL (8.5-10.1) Total Bilirubin 0.3 MG/DL (0.2-1.0) Aspartate Amino Transf (AST/SGOT) 24 U/L (15-37) Alanine Aminotransferase (ALT/SGPT) 22 U/L (12-78) Alkaline Phosphatase 80 U/L (46-116) Total Protein 6.8 G/DL (6.4-8.2) Albumin 3.4 G/DL (3.4-5.0) Globulin 3.4 g/dL Albumin/Globulin Ratio 1.0 (1.0-2.7) Objective HEENT: Atraumatic and normocephalic. Anicteric. Pupils are equal, round, and reactive to light and accommodation. Extraocular muscles are intact. NECK: JVP less than 5 cm. No carotid bruit. Carotid upstrokes 2+ bilaterally. CARDIOVASCULAR: Normal S1 and S2. Regular rate and rhythm. No murmurs, gallops, or rubs. PMI is at fourth intercostal space in the midclavicular line. LUNGS: Clear to auscultation bilaterally. ABDOMEN: Soft, nontender, and nondistended. No hepatosplenomegaly. Positive bowel sounds. EXTREMITIES: No evidence of edema, clubbing, or cyanosis. ABI,LEYDI Jan 29, 2017 14:12
[2017-01-29] MEDS: Metoprolol Succinate XL 25mg tab ORAL SCH (15:35)
[2017-01-30 00:15] VITALS: BP 154/84
[2017-01-30 04:30] VITALS: BP 141/88
[2017-01-30 08:00] VITALS: BP 154/100
[2017-01-30 08:28] LABS: BASOPHILS % (AUTO) 1.2 % (0.0-2.0); EOSINOPHILS % (AUTO) 1.5 % (0.0-3.0); LYMPHOCYTES % (AUTO) 40.8 % (20.0-45.0); MEAN CORPUSCULAR HEMOGLOBIN 32.8 PG (27.0-31.0); MEAN CORPUSCULAR HGB CONC 33.5 G/DL (32.0-36.0); MEAN CORPUSCULAR VOLUME 98 FL (80-99); MEAN PLATELET VOLUME 7.7 FL (6.5-10.1); MONOCYTES % (AUTO) 8.5 % (1.0-10.0); PLATELET COUNT 275 K/UL (150-450); RED BLOOD COUNT 4.06 M/UL (4.20-5.40); RED CELL DISTRIBUTION WIDTH 12.8 % (11.6-14.8); WHITE BLOOD COUNT 5.5 K/UL (4.8-10.8)
--- NOTE | 2017-01-30 08:48 | General Progress Note ---
Assessment/Plan Status: stable Assessment/Plan 1. Acute encephalopathy. 2. Leukocytosis. 3. Abnormal blood sugar. 4. Gastrointestinal and deep venous thrombosis prophylaxis. Plan: Notes from cardiology and Neurology reviewed ok to followup as an outpatient Subjective ROS Limited/Unobtainable: Yes Constitutional: Reports: no symptoms HEENT: Reports: no symptoms Cardiovascular: Reports: no symptoms Allergies: Coded Allergies: No Known Allergies (Unverified , 01/27/17) Objective Last 24 Hour Vital Signs Date Time Temp Pulse Resp B/P (MAP) Pulse Ox O2 Delivery O2 Flow Rate FiO2 01/30/17 04:30 97.5 77 20 141/88 97 Room Air 01/30/17 04:30 77 76 78 01/30/17 02:55 67 01/30/17 00:15 97.9 70 20 154/84 99 Nasal Cannula 2.0 01/29/17 23:41 71 01/29/17 20:00 98.0 80 20 156/91 99 Room Air 01/29/17 19:04 84 01/29/17 18:10 127/92 01/29/17 16:00 91 01/29/17 15:35 89 161/93 01/29/17 15:35 89 161/93 01/29/17 15:30 97.8 89 20 161/93 97 Room Air 01/29/17 12:00 83 01/29/17 12:00 98.4 82 20 159/96 99 Room Air 01/29/17 11:44 82 80 97 Laboratory Tests 01/30/17 07:40: White Blood Count 5.5, Red Blood Count 4.06L, Hemoglobin 13.3, Hematocrit 39.8, Mean Corpuscular Volume 98, Mean Corpuscular Hemoglobin 32.8H, Mean Corpuscular Hemoglobin Concent 33.5, Red Cell Distribution Width 12.8, Platelet Count 275, Mean Platelet Volume 7.7, Neutrophils (%) (Auto) 48.0, Lymphocytes (%) (Auto) 40.8, Monocytes (%) (Auto) 8.5, Eosinophils (%) (Auto) 1.5, Basophils (%) (Auto ) 1.2, Sodium Level [Pending], Potassium Level [Pending], Chloride Level [ Pending], Carbon Dioxide Level [Pending], Blood Urea Nitrogen [Pending], Creatinine [Pending], Estimat Glomerular Filtration Rate [Pending], Glucose Level [Pending], Calcium Level [Pending], Total Bilirubin [Pending], Aspartate Amino Transf (AST/SGOT) [Pending], Alanine Aminotransferase (ALT/SGPT) [Pending] , Alkaline Phosphatase [Pending], Total Protein [Pending], Albumin [Pending], Globulin [Pending] Height (Feet): 5 Height (Inches): 4.00 Weight (Pounds): 108 General Appearance: WD/WN EENT: PERRL/EOMI Neck: supple Cardiovascular: normal rate Respiratory/Chest: lungs clear Abdomen: soft Extremities: non-tender 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
[2017-01-30] MEDS: Enoxaparin 40mg Inj SUBQ SCH (09:00)
[2017-01-30] MEDS: Metoprolol Succinate XL 25mg tab ORAL SCH (09:07)
[2017-01-30] MEDS: Aspirin EC 81mg tab ORAL SCH (09:08)
[2017-01-30 09:14] LABS: ALANINE AMINOTRANSFERASE 23 U/L (12-78); ALBUMIN/GLOBULIN RATIO 0.9 (1.0-2.7); ANION GAP 11 mmol/L (5-15); ASPARTATE AMINO TRANSFERASE 21 U/L (15-37); CALCIUM 9.5 MG/DL (8.5-10.1); CARBON DIOXIDE 26 MMOL/L (21-32); CHLORIDE 106 MMOL/L (98-107); CREATININE 0.7 MG/DL (0.55-1.30); GLOMERULAR FILTRATION RATE > 60 mL/min (>60); SODIUM 143 MMOL/L (136-145); TOTAL PROTEIN 7.4 G/DL (6.4-8.2)
[2017-01-30] MEDS ORDERED: NORVASC2.5 MG ORAL (10:36)
[2017-01-30] MEDS ORDERED: ASPIR 8181 MG ORAL (10:37)
[2017-01-30] MEDS ORDERED: METOPROLOL TART25 MG ORAL (10:38)
[2017-01-30 11:52] VITALS: BP 182/107
[2017-01-30 13:23] VITALS: BP 150/85
--- NOTE | 2017-01-30 22:30 | Cardiology Progress Note ---
Assessment/Plan Assessment/Plan 1. Accelerated HTN, continue amlodipine and metoprolol, normal LV systolic function. 2. Pre-syncopal event, keep hydrated. 3. Hyperlipidemia, continue atorvastatin. Subjective Subjective Sinus rhythm at 85. Objective Last 24 Hour Vital Signs Date Time Temp Pulse Resp B/P (MAP) Pulse Ox O2 Delivery O2 Flow Rate FiO2 01/30/17 13:23 150/85 01/30/17 11:52 98.0 82 18 182/107 98 Room Air 01/30/17 11:16 182/107 01/30/17 09:08 85 154/100 01/30/17 09:07 85 154/100 01/30/17 08:00 97.5 85 18 154/100 99 Room Air 01/30/17 08:00 85 01/30/17 04:30 97.5 77 20 141/88 97 Room Air 01/30/17 04:30 77 76 78 01/30/17 02:55 67 01/30/17 00:15 97.9 70 20 154/84 99 Nasal Cannula 2.0 01/29/17 23:41 71 2D Echo: LVERF 55%, RVSP 33 mmHg. Laboratory Tests Test 01/30/17 07:40 White Blood Count 5.5 K/UL (4.8-10.8) Red Blood Count 4.06 M/UL (4.20-5.40) L Hemoglobin 13.3 G/DL (12.0-16.0) Hematocrit 39.8 % (37.0-47.0) Mean Corpuscular Volume 98 FL (80-99) Mean Corpuscular Hemoglobin 32.8 PG (27.0-31.0) H Mean Corpuscular Hemoglobin Concent 33.5 G/DL (32.0-36.0) Red Cell Distribution Width 12.8 % (11.6-14.8) Platelet Count 275 K/UL (150-450) Mean Platelet Volume 7.7 FL (6.5-10.1) Neutrophils (%) (Auto) 48.0 % (45.0-75.0) Lymphocytes (%) (Auto) 40.8 % (20.0-45.0) Monocytes (%) (Auto) 8.5 % (1.0-10.0) Eosinophils (%) (Auto) 1.5 % (0.0-3.0) Basophils (%) (Auto) 1.2 % (0.0-2.0) Sodium Level 143 MMOL/L (136-145) Potassium Level 4.0 MMOL/L (3.5-5.1) Chloride Level 106 MMOL/L (98-107) Carbon Dioxide Level 26 MMOL/L (21-32) Anion Gap 11 mmol/L (5-15) Blood Urea Nitrogen 17 mg/dL (7-18) Creatinine 0.7 MG/DL (0.55-1.30) Estimat Glomerular Filtration Rate > 60 mL/min (>60) Glucose Level 116 MG/DL (74-106) H Calcium Level 9.5 MG/DL (8.5-10.1) Total Bilirubin 0.3 MG/DL (0.2-1.0) Aspartate Amino Transf (AST/SGOT) 21 U/L (15-37) Alanine Aminotransferase (ALT/SGPT) 23 U/L (12-78) Alkaline Phosphatase 89 U/L (46-116) Total Protein 7.4 G/DL (6.4-8.2) Albumin 3.6 G/DL (3.4-5.0) Globulin 3.8 g/dL Albumin/Globulin Ratio 0.9 (1.0-2.7) L Objective HEENT: Atraumatic and normocephalic. Anicteric. Pupils are equal, round, and reactive to light and accommodation. Extraocular muscles are intact. NECK: JVP less than 5 cm. No carotid bruit. Carotid upstrokes 2+ bilaterally. CARDIOVASCULAR: Normal S1 and S2. Regular rate and rhythm. No murmurs, gallops, or rubs. PMI is at fourth intercostal space in the midclavicular line. LUNGS: Clear to auscultation bilaterally. ABDOMEN: Soft, nontender, and nondistended. No hepatosplenomegaly. Positive bowel sounds. EXTREMITIES: No evidence of edema, clubbing, or cyanosis. LEYDI ALEX Jan 30, 2017 22:30
--- NOTE | 2017-01-31 09:00 | Diagnostic Imaging Report ---
APPROVED REPORT CPT Code: 35784 Vascular Symptoms Syncope CAROTID (BILATERAL) - Imaging reveals no significant plaque within the right and left extracranial carotid arteries. The Doppler spectral flow analysis is within normal limits throughout the extracranial carotid arteries bilaterally. VERTEBRAL- The vertebral arteries are within normal limits.
--- NOTE | 2017-02-01 14:01 | Discharge Summary ---
Discharge Summary Hospital Course Date of Admission Jan 27, 2017 at 21:39 Date of Discharge Jan 30, 2017 at 13:55 Admitting Diagnosis syncope, dehydration HPI Cesilia Liu is a 71 year old female who was admitted on Jan 27, 2017 at 21: 39 for Syncope, Dehydration Hospital Course [id number] Discharge Discharge Disposition Patient was discharged to home Discharge Diagnoses: Saadia Pruitt NP Feb 01, 2017 14:01
--- NOTE | 2017-02-02 02:16 | Discharge Summary 2 SIG ---
DATE OF ADMISSION: 01/27/2017 DATE OF DISCHARGE: 01/30/2017 CONSULTANTS: 1. Reji Baker M.D. 2. Juan Ramon Sy M.D. BRIEF HOSPITAL COURSE: The patient is a 71-year-old female with unremarkable past medical history, came in for possible loss consciousness. The patient was brought in by 911. She denied any loss of control over urination or bladder/bowel. On evaluation at ED, EKG was in normal sinus rhythm without acute ST to T-wave changes. She was given IV fluids. Blood work showed slight leukocytosis and urine drug screen was positive for marijuana. She was admitted for acute encephalopathy. She underwent neurologic and cardiac evaluation. Echocardiogram done showed EF 55% and carotid duplex did not show significant plaque within the right and left extracranial carotid arteries. Vertebral arteries were within normal limits. She was given metoprolol and amlodipine for blood pressure control. LDL was 137 and cholesterol 234 and was advised need to be started on statins. Vitals had been stable. She was eventually discharged home. FINAL DIAGNOSES: 1. Acute encephalopathy. 2. Abnormal blood sugar. 3. Accelerated hypertension. 4. Hyperlipidemia. 5. Presyncopal event, possibly due to dehydration. DISPOSITION: The patient was discharged home. DISCHARGE MEDICATIONS: Refer to medication list. FOLLOWUP: The patient was advised to follow up with PMD in a week. Amado Page M.D. I have been assigned to dictate discharge summary on this account and I was not involved in the patient's management. Saadia Pruitt N.P. DR: Ian JOB#: [id number] CC: MIKALA
== END 2017-01-30 13:55 | disposition home or self-care (01) | DRG 640 ==
LOC: EDBD 16:43 → EMR 18:35 → ENRESERV 21:38 → 2E 21:39 → EDBEDREQ 21:41
DX: E86.0 Dehydration (principal); G93.40 Encephalopathy, unspecified; E78.5 Hyperlipidemia, unspecified; F12.10 Cannabis abuse, uncomplicated; R73.09 Other abnormal glucose; D72.829 Elevated white blood cell count, unspecified; G31.84 Mild cognitive impairment of uncertain or unknown etiology; I10 Essential (primary) hypertension
CPT/HCPCS: 36415; 71010; 80053; 80061; 80307; 80329; 81001; 83036; 84484; 85025; 85610; 85730; 93005; 93306; 93880; 99285